=== PATIENT | male | born 1990 | race African-American/Black ===

== ENCOUNTER 2018-07-30 23:14 | Emergency (ER) | payer SELFPAY ==
[2018-07-30 23:24] VITALS: BP 148/93; PULSE 75; TEMP 98.1; BMI 33.4
[2018-07-31] MEDS ORDERED: OFLOXACIN 0.3% OTIC SOLUTION 5 ML BOTTLE AU ONE (00:20)
--- NOTE | 2018-07-31 00:28 | PDOC ---
History of Present Illness - General Chief Complaint: Foreign Body (FB) Stated Complaint: Q-TIP STUCK IN EAR Time Seen by Provider: 07/30/18 23:40 - History of Present Illness Initial Comments: 07/31/18 00:28 27-year-old male complaining of right ear discomfort after Q-tip getting stuck in it Today Denies drainage, hearing changes. Denies fevers/chills. Past History - Past Medical History Allergies/Adverse Reactions: Allergies Allergy/AdvReac Type Severity Reaction Status Date / Time No Known Allergies Allergy Verified 07/30/18 23:21 Anemia: No Cancer: No Cardiac Disorders: No CVA: No COPD: No CHF: No Dialysis: No HTN: No Hypercholesterolemia: No - Surgical History Cardiac Surgery: No Gastric Stapling: No GI Surgery: No - Suicide/Smoking/Psychosocial Hx Smoking History: Never smoked Have you smoked in the past 12 months: No Information on smoking cessation initiated: No Hx Alcohol Use: No Drug/Substance Use Hx: No Review of Systems - Review of Systems Able to Perform ROS?: Yes Is the patient limited [place] proficient: No Constitutional: No: Symptoms Reported, See HPI, Chills, Diaphoresis, Fever, Loss of Appetite, Malaise, Night Sweats, Weakness, Weight Stable, Unintentional Wgt. Loss, Unexplained wgt Loss, Other HEENTM: Yes: Ear Pain. No: Symptoms Reported, See HPI, Eye Pain, Blurred Vision , Tearing, Recent change in vision, Double Vision, Cataracts, Ocular Prothesis, Ear Discharge, Nose Pain, Nose Congestion, Tinnitus, Nose Bleeding, Hearing Loss , Throat Pain, Throat Swelling, Mouth Pain, Dental Problems, Difficulty Swallowing, Mouth Swelling, Other *Physical Exam - Vital Signs Last Vital Signs Temp Pulse Resp BP Pulse Ox 98.1 F 75 20 148/93 97 07/30/18 23:22 07/30/18 23:22 07/30/18 23:22 07/30/18 23:22 07/30/18 23:22 - Physical Exam General Appearance: Yes: Appropriately Dressed HEENT: positive: TMs Normal, Other (white foreign body in right ear) Neck: negative: Tender, Trachea midline, Normal Thyroid, Rigid, Supple, Carotid bruit, Decreased range of motion, Stridor, Lymphadenopathy (R), Lymphadenopathy (L), Rigidity, Tender lateral, Tender midline, Thyromegaly, Other Moderate Sedation - Procedure Monitoring Vital Signs: Procedure Monitoring Vital Signs Temperature 98.1 F 07/30/18 23:22 Pulse Rate 75 07/30/18 23:22 Respiratory Rate 20 07/30/18 23:22 Blood Pressure 148/93 07/30/18 23:22 O2 Sat by Pulse Oximetry (%) 97 07/30/18 23:22 Procedures - Additional Procedures Progress: 07/31/18 00:29 foreign body Q-tip wick removed from right ear. Erythema to ear canal. No ruptured TM. Medical Decision Making - Medical Decision Making foreign body in right ear P: see procedure note 07/31/18 00:31 patient offered ofloxacin empirically to right ear canal patient refused *DC/Admit/Observation/Transfer Diagnosis at time of Disposition: Foreign body of ear, right Qualifiers: Encounter type: initial encounter Qualified Code(s): T16.1XXA - Foreign body in right ear, initial encounter - Discharge Dispostion Disposition: HOME - Referrals - Patient Instructions Printed Discharge Instructions: DI for Removal of Foreign Body From Ear - Post Discharge Activity
== END 2018-07-31 00:35 | disposition home or self-care (01) ==
LOC: JER 23:14
PROC: 09C37ZZ Extirpation of Matter from Right External Auditory Canal, Via Natural or Artificial Opening (ICD-10-PCS; principal; 2018-07-30)
DX: T16.1XXA Foreign body in right ear, initial encounter (principal)
CPT/HCPCS: 99281-25